=== PATIENT | female | born 1955 | race Caucasian/White ===

== ENCOUNTER 2018-03-28 09:06 | Outpatient (CLI) | payer MEDICAID ==
[~2018-03-28 09:06] MED LIST: CYMBALTA30 MG PO; DURAGESIC TD; KLONOPIN1 MG PO; NEURONTIN600 MG PO; PREDNISONE20 MG PO; SOMA350 MG PO; TRAZODONE HCL150 MG PO
--- NOTE | 2018-03-29 00:01 | Electroencephalogram ---
REQUESTING PHYSICIAN: Zac De Anda M.D. READING PHYSICIAN: Garland Hernandez M.D. DATE OF TRACIN03/28/2018 HISTORY: This EEG was performed on a 62-year-old lady with a history of parkinsonism and an episode of loss of consciousness. The purpose of this EEG was to evaluate the patient for ongoing ictal or interictal phenomena. TECHNICAL NOTE: This EEG was performed on a [employer] with electrodes placed on the scalp according to the International 10-20 system. [id number] and trwtp-[id number] montages were used. The EEG was technically satisfactory and was performed in the awake and drowsy states. OBSERVATIONS: In the best awake state, the background activity consisted of 8.5-9 Hz, posteriorly predominant, well-developed, alpha waveforms, which attenuated on eye opening. Drowsiness was characterized by dissolution of the alpha rhythm and the appearance of slower frequencies in the 5-6 Hz theta range. Photic stimulation was performed at various different frequencies and produced no abnormalities. No focal abnormalities or epileptiform discharges were seen. IMPRESSION: Normal awake and drowsy EEG. Garland Hernandez M.D., M.S.P.H. DR: KAREN JOB#: [id number] MTDD
== END 2018-03-28 11:06 | disposition home or self-care (01) ==
LOC: CAR 09:06
DX: R55 Syncope and collapse (principal); G20 Parkinson's disease
CPT/HCPCS: 95819